=== PATIENT | female | born 1940 | race Caucasian/White ===

== ENCOUNTER 2025-03-14 06:06 | Emergency (ER) | payer OTHER ==
[~2025-03-14] VITALS: Ht 162.6 cm; Wt 61.4 kg
--- NOTE | 2025-03-14 06:53 | ED.PDOC ---
History of Present Illness HPI Comments 85-year-old female presents to the ER by ambulance with a chief complaint of flank pain. Sudden having had left-sided flank pain which radiates to the left lower quadrant associated with nausea since midnight. Patient notes on also having had shortness a breath but he is unknown if the shortness a breath or flank pain came 1st. Patient currently has no urinary symptoms at this time. Denies any other symptoms at this time. Denies chills, fever, /V/D, SOB, CP. No other associated symptoms, modifiers, recent injuries or sick contacts present at this time. Chief Complaint: Flank Pain Time Seen by MD: 06:50 Reviewed Notes: Nurses Notes, Medications, Allergies Allergies: Coded Allergies: NO KNOWN ALLERGIES (Unverified , 03/14/25) Home Meds Active Scripts Hydrocodone-Acetaminophen (Hydrocodone Bitartrate/AC 5-325 mg) 1 Tab Tab, 1 TAB PO DAILY for 5 Days, #5 TAB Prov:BRIANA GRIGGS MD 03/14/25 Nitrofurantoin Monohydrate Mac (Macrobid) 100 Mg Cap, 100 MG PO BID for 7 Days, #14 CAP Prov:BRIANA GRIGGS MD 03/14/25 Information Source: Patient Mode of Arrival: EMS Severity: Moderate Timing: Hours Duration: Since onset, Hours Prehospital treatment: None Past Medical History PAST MEDICAL HISTORY: Denies Surgical History: Denies all surgeries [employer] History: No 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 Family History Family History: Reviewed,noncontributory to illness, Unknown Social History Smoker: Non-Smoker Alcohol: Denies ETOH Use Drugs: Denies Drug Use Lives In: Home Constitutional: denies: chills, diaphoresis, fatigue, fever, malaise, sweats, weakness, others EENTM: denies: blurred vision, double vision, ear bleeding, ear discharge, ear drainage, ear pain, ear ringing, eye pain, eye redness, hearing loss, mouth pain, mouth swelling, nasal discharge, nose bleeding, nose congestion, nose pain, photophobia, tearing, throat pain, throat swelling, voice changes, others Respiratory: denies: cough, hemoptysis, orthopnea, SOB at rest, shortness of breath, SOB with excertion, stridor, wheezing, others Cardiovascular: denies: chest pain, dizzy spells, diaphoresis, Dyspnea on exertion, edema, irregular heart beat, left arm pain, lightheadedness, palpitations, PND, syncope, others Gastrointestinal: reports: nausea; denies: abdomen distended, abdominal pain, blood streaked bowels, constipated, diarrhea, dysphagia, difficulty swallowing, hematemesis, melena, poor appetite, poor fluid intake, rectal bleeding, rectal pain, vomiting, others Genitourinary: reports: flank pain; denies: abnormal vagina bleeding, burning, dyspareunia, dysuria, frequency, hematuria, incontinence, pain, , vagina discharge, urgency, others Neurological: denies: dizziness, fainting, headache, left sided numbness, left sided weakness, numbness, paresthesia, pre-existing deficit, right sided numbness, right sided weakness, seizure, speech problems, tingling, tremors, weakness, others Musculoskeletal: denies: back pain, gout, joint pain, joint swelling, muscle pain, muscle stiffness, neck pain, others Integumetry: denies: bruises, change in color, change in hair/nails, dryness, laceration, lesions, lumps, rash, wounds, others Allergic/Immunocompromised: denies: Difficulty Healing, Frequent Infections, Hives, Itching, others Hematologic/Lymphatic: denies: anemia, blood clots, easy bleeding, easy bruising, swollen glands, others Endocrine: denies: excessive hunger, excessive sweating, excessive thirst, excessive urination, flushing, intolerance to cold, intolerance to heat, unex plained weight gain, unexplained weight loss, others Psychiatric: denies: anxiety, bipolar disorder, depression, hopeless, panic disorder, schizophrenia, sleepless, suicidal, others All Other Systems: Reviewed and Negative Physical Exam General Appearance: Moderate Distress, Normal HEENT: Normal ENT Inspection, Pharynx Normal, TMs Normal Neck: Full Range of Motion, Non-Tender, Normal, Normal Inspection Respiratory: Chest Non-Tender, Lungs Clear, No Accessory Muscle Use, No Respiratory Distress, Normal Breath Sounds Cardiovascular: No Edema, No JVD, No Murmur, No Gallop, Normal Peripheral Pulses, Regular Rate/Rhythm Breast Exam: Deferred Gastrointestinal: No Organomegaly, Non Tender, No Pulsatile Mass, Normal Bowel Sounds, Soft Genitalia: Deferred Pelvic: Deferred Rectal: Deferred Extremities: No calf tenderness, Normal capillary refill, Normal inspection, Normal range of motion, Non-tender, No pedal edema Musculoskeletal : Apperance: Normal Neurologic: Alert, office professional II-XII nml as Tested, No Motor Deficits, Normal Affect, Normal Mood, No Sensory Deficits Cerebellar Function: NOT DONE Reflexes: NOT DONE Skin: Dry, Normal Color, Warm Peripheral Pulses: 3+ Radial (R), 3+ Radial (L) Lymphatic: No Adenopathy Was a procedure done? Was a procedure done?: No Differential Dx Considerations may include: Anemia Electrolyte imbalance X-Ray, Labs, Meds, VS Vital Signs Date Time Temp Pulse Resp B/P (MAP) Pulse Ox O2 Delivery O2 Flow Rate FiO2 03/14/25 07:10 97.4 81 12 144/82 (102) 96 97.4 03/14/25 06:10 98.9 90 20 147/78 96 98.9 Lab Test 03/14/25 10:02 03/14/25 08:06 03/14/25 07:02 Range/Units Troponin I High Sensitivity 5 5 4 </=34 ng/L White Blood Count 6.9 4.4-10.8 10^3/uL Red Blood Count 4.56 4.0-5.20 10^6/uL Hemoglobin 14.5 12.2-16.2 g/dL Hematocrit 43.6 36.0-46.0 % Mean Corpuscular Volume 95.6 80.0-100.0 fL Mean Corpuscular Hemoglobin 31.8 28.0-32.0 pg Mean Corpuscular Hemoglobin Concent 33.3 32.0-36.0 g/dL Red Cell Distribution Width 14.8 H 11.8-14.3 % Platelet Count 288 140-450 10^3/uL Mean Platelet Volume 6.5 L 6.9-10.8 fL Neutrophils (%) (Auto) 63.9 37.0-80.0 % Lymphocytes (%) (Auto) 24.9 10.0-50.0 % Monocytes (%) (Auto) 9.8 0.0-12.0 % Eosinophils (%) (Auto) 1.0 0.0-7.0 % Basophils (%) (Auto) 0.4 0.0-2.0 % Neutrophils # (Auto) 4.4 1.6-8.6 10 ^3/uL Lymphocytes # (Auto) 1.7 0.4-5.4 10 ^3/uL Monocytes # (Auto) 0.7 0-1.3 10 ^3/uL Eosinophils # (Auto) 0.1 0-0.8 10 ^3/uL Basophils # (Auto) 0 0-0.2 10 ^3/uL Nucleated Red Blood Cells 0.1 % Sodium Level 142 136-145 mmol/L Potassium Level 4.0 3.5-5.1 mmol/L Chloride Level 108 H 98-107 mmol/L Carbon Dioxide Level 26 20-31 mmol/L Anion Gap 8 5-15 Blood Urea Nitrogen 7 L 9-23 mg/dL Creatinine 0.89 0.550-1.02 mg/dL Glomerular Filtration Rate Calc 63 >90 mL/min BUN/Creatinine Ratio 7.9 L 10.0-20.0 Serum Glucose 96 74-106 mg/dL Calcium Level 9.3 8.7-10.4 mg/dL Current Medications Medications (Trade) Dose Ordered Sig/Lakhwinder Route Start Time Stop Time Status Last Admin Ondansetron HCl (Zofran) 4 mg ONCE ONCE IV 03/14/25 06:45 03/14/25 06:46 DC 03/14/25 08:29 Sodium Chloride 1,000 ml @ 1,000 mls/hr Q1H ONCE IV 03/14/25 06:45 03/14/25 07:44 DC 03/14/25 08:33 Acetaminophen/ Hydrocodone Bitart ([place] 5/325MG Tab) 1 tab ONCE ONCE PO 03/14/25 08:30 03/14/25 08:31 DC 03/14/25 08:28 Patient alert. Came in because of flank pain. Vitals stable. Answering questions. Establish intravenous access. Was given fluids. Continue monitoring. CT scan of the abdomen reviewed does not show any acute changes. Possible urinary tract infection. Was given prescription of Macrobid antibiotic. Explained to the patient. Was told to follow up with her primary care physician. Was told to come back if there is any problem. Time of 1ST Reevaluation: 07:20 Reevaluation 1ST: Unchanged Patient Education/Counseling: Diagnosis, Treatment, Prognosis Family Education/Counseling: No Family Present SEPSIS Sepsis Screen Date sepsis recognized/suspect: Mar 14, 2025 Time Sepsis recognized/suspect: 06 Recent Procedure: No On Antibiotic Therapy: No Respiratory Rate >20: No Heart Rate >90: No Temp<36 C (96.8 F) or >38.3 C: No SBP <90 or MAP <65 mmHG: No New Acute Mental Status Change: No Is the patient on CPAP, BIPAP,: No Physician Orders Urinalysis (03/14/25 06:43) Ct Ab Pel Wo Con-No Oral Or Iv (03/14/25 07:09) Vital Signs Date Time Temp Pulse Resp B/P (MAP) Pulse Ox O2 Delivery O2 Flow Rate FiO2 03/14/25 07:10 97.4 81 12 144/82 (102) 96 97.4 03/14/25 06:10 98.9 90 20 147/78 96 98.9 Laboratory Tests Test 03/14/25 07:02 White Blood Count 6.9 10^3/uL (4.4-10.8) Medications Medications Dose Ordered Sig/Lakhwinder Route Start Time Stop Time Status Last Admin Dose Admin Acetaminophen/ Hydrocodone Bitart 1 tab ONCE ONCE PO 03/14/25 08:30 03/14/25 08:31 DC 03/14/25 08:28 Ondansetron HCl 4 mg ONCE ONCE IV 03/14/25 06:45 03/14/25 06:46 DC 03/14/25 08:29 Sodium Chloride 1,000 ml @ 1,000 mls/hr Q1H ONCE IV 03/14/25 06:45 03/14/25 07:44 DC 03/14/25 08:33 Departure 1 Departure Time of Disposition: 07:08 Impression: Primary Impression: Urinary tract infection Qualified Codes: N30.00 - Acute cystitis without hematuria Disposition: 01 HOME / SELF CARE / HOMELESS Condition: Good e-Prescriptions Hydrocodone-Acetaminophen (Hydrocodone Bitartrate/AC 5-325 mg) 1 Tab Tab 1 TAB PO DAILY for 5 Days, #5 TAB Prov: BRIANA GRIGGS MD 03/14/25 Nitrofurantoin Monohydrate Mac (Macrobid) 100 Mg Cap 100 MG PO BID for 7 Days, #14 CAP Prov: BRIANA GRIGGS MD 03/14/25 Discharged With: Self Critical Care Note Critical Care Time?: No Stability Stability form required: No Heart Score Heart Score: Heart Score Response (Comments) Value History N/A 0 EKG N/A 0 Age N/A 0 Risk Factors N/A 0 Troponin N/A 0 Total 0 I personally scribed for BRIANA GRIGGS MD ([email or web address]) on 03/14/25 at 06:52. Electronically submitted by Madi Love ([email or web address]). BRIANA GRIGGS MD Mar 14, 2025 06:52
[2025-03-14 07:25] LABS: Hematocrit 43.6 % (36.0-46.0); Hemoglobin 14.5 g/dL (12.2-16.2); Mean Corpuscular Hemoglobin 31.8 pg (28.0-32.0); Mean Corpuscular Volume 95.6 fL (80.0-100.0); Nucleated Red Blood Cells % 0.1 %; Potassium 4.0 mmol/L (3.5-5.1); Sodium 142 mmol/L (136-145)
[2025-03-14 07:26] LABS: Anion Gap 8 (5-15); Carbon Dioxide 26 mmol/L (20-31)
[2025-03-14 07:27] LABS: Calcium 9.3 mg/dL (8.7-10.4); Chloride 108 mmol/L (98-107)
[2025-03-14 07:31] LABS: Glucose 96 mg/dL (74-106)
[2025-03-14 07:32] LABS: BUN/Creatinine Ratio 7.9 (10.0-20.0); Blood Urea Nitrogen 7 mg/dL (9-23)
[2025-03-14] MEDS: HYDROcodone-ACET 5/325MG TAB PO ONE (08:28)
[2025-03-14] MEDS: ONDANSETRON HCL 4 MG/2 ML VIAL IV ONE (08:29)
[2025-03-14] MEDS: SODIUM CHLORIDE 0.9% 1,000 ML IV ONE (08:33)
[2025-03-14] MEDS: MORPHINE SULFATE 4 MG/ML SYR/VIAL IV ONE (08:34)
[2025-03-14 08:58] VITALS: TEMP 98.9
--- NOTE | 2025-03-14 09:27 | DVH ---
INDICATION: stone TECHNIQUE: CT axial images of the abdomen and pelvis are obtained without contrast. Coronal and sagittal reformats were obtained. Radiation Dose Information: CTDI volume is 7.3 mGy. Dose-length product is 398 mGy*cm COMPARISON: None FINDINGS: There is limited interpretation of the abdomen and pelvis without administration of intravenous contrast. Pulmonary emphysematous changes. Adrenal glands, spleen, pancreas unremarkable in shape. Cholecystectomy. Liver unremarkable in shape. No evidence for nephrolithiasis. Mild left hydroureteronephrosis most pronounced along the proximal to mid left ureter. Stomach is partially distended. Duodenal diverticulum. Small bowel loops are normal in caliber. Colonic diverticular disease. Moderate volume stool in the colon. No secondary signs for appendicitis. Abdominal aortic atherosclerotic disease, tortuosity. Dilatation of the infrarenal abdominal aorta up to 2.2 cm. Bladder partially distended. No free pelvic fluid. No inguinal lymphadenopathy. No aggressive osseous process. IMPRESSION: Limited evaluation without contrast. Mild left hydroureteronephrosis. No obstructing calculus identified. Colonic diverticular disease. Pulmonary emphysematous changes. Atherosclerotic disease. Mild dilatation infrarenal abdominal aorta to 2.2 cm. Other findings as described.
[2025-03-14 10:57] VITALS: O2SAT 96
[2025-03-14] MEDS ORDERED: HYDR-4902 PO (11:23)
[2025-03-14] MEDS ORDERED: NITR-87 PO (11:23)
[2025-03-14 13:03] VITALS: BP 110/61; PULSE 88; RESP 13
--- NOTE | 2025-03-15 06:58 | ECG ---
[facility] Test Date: 2025-03-14 Test Time: 11:48:40 Pat Name: JIM MEDELLIN Department: REPLACED BY [facility] ED Patient ID: REPLACED BY [facility]-[id number] Room: Gender: F Clinical Rehab Specialist: SAROJ : 1940 Requested By: BRIANA GRIGGS Order Number: [id number] Reading MD: Mitul Sarmiento Measurements Intervals [place] Rate: 83 P: 48 [place]: 160 QRS: 19 QRSD: 86 T: 42 QT: 371 QTc: 436 Interpretive Statements Sinus rhythm Atrial premature complexes in couplets Anteroseptal infarct, age indeterminate Electronically Signed On 03-17-2025 10:29:56 PST by Mitul Sarmiento Please click the below link to view image of tracing.
== END 2025-03-14 13:14 | disposition home or self-care (01) ==
LOC: EDBD 06:06 → ER 06:06
DX: N39.0 Urinary tract infection, site not specified (principal); Z79.899 Other long term (current) drug therapy; Z79.891 Long term (current) use of opiate analgesic
CPT/HCPCS: 36415; 74176; 80048; 84484; 85025; 93005; 96361; 96365; 96375; 99285; J0696; J2405; J7030